=== PATIENT | female | born 1955 | race Caucasian/White ===

== ENCOUNTER 2020-07-25 14:58 | Emergency (ER) | payer MEDICARE, OTHER, SELFPAY ==
[2020-07-25 15:06] VITALS: BP 152/85; PULSE 55; RESP 15; TEMP 36.8; O2SAT 97; BMI 33.9
--- NOTE | 2020-07-25 15:12 | XRR_ITS ---
PROCEDURE INFORMATION: Exam: XR Chest Exam date and time: 07/25/2020 3:13 PM Age: 65 years old Clinical indication: Chest pain TECHNIQUE: Imaging protocol: XR of the chest. Views: 1 view. COMPARISON: CR Chest 1 [place] [id number] 09/14/2014 10:55 PM FINDINGS: Lungs: Unremarkable. No consolidation. Pleural spaces: Unremarkable. No pleural effusion. No pneumothorax. Heart/Mediastinum: Unremarkable. No cardiomegaly. Bones/joints: Unremarkable. XR/XR chest 1V portable [id number] IMPRESSION: No acute findings.
--- NOTE | 2020-07-25 15:12 | ECG_ITS ---
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 Measurements Intervals [place] Rate: 45 P: 42 [place]: 172 QRS: 26 QRSD: 89 T: 20 QT: 436 QTc: 380 Interpretive Statements SINUS BRADYCARDIA WITH SINUS ARRHYTHMIA Compared to ECG 09/15/2014 00:16:01 Sinus rhythm no longer present T-wave abnormality no longer present Electronically Signed On 07-26-2020 10:35:46 CDT by Shannan Griffin M.D. [email or web address] Communications[id number]
--- NOTE | 2020-07-25 15:23 | ED_ITS ---
HPI - Chest Pain General: Chief Complaint: Chest Pain Stated Complaint: CHEST PAIN Time Seen by Provider: 07/25/20 15:02 History of Present Illness: HPI narrative: 65-year-old female presents emergency room with complaint of chest pain that she has had for the last 5 days associated dizziness and shortness of breath. No diaphoresis. Pain and discomfort radiates into the back. No known history of coronary disease she has been told she has atrial fibrillation in the past. MD complaint: chest pain Onset (ago): day(s) Timing of current episode: episodic Onset: during rest Pain location: left chest Pain radiation: none Severity: mild Quality: aching and heaviness Relieving factors: nothing Exacerbating factors: nothing Associated symptoms: Deny abdominal pain, diaphoresis, dyspnea, fever(s), leg edema, nausea, palpitations, sense of impending doom, syncope or vomiting Treatment prior to arrival: none Review of Systems Const: Denies: fever(s) or diaphoresis ENMT: Denies: throat pain, ear or mastoid pain, nasal discharge or nasal congestion Card: Denies: palpitations or syncope Resp: Denies: dyspnea GI: Denies: abdominal pain, nausea or vomiting : Denies: flank pain, difficulty voiding, dysuria, urinary frequency or urinary urgency Skin/Breast: Denies: rash or pruritus Physical Exam Const: COMMON NORMALS: no acute distress GENERAL APPEARANCE: cooperative and comfortable ORIENTATION/CONSCIOUSNESS: Yes awake, Yes oriented to person, Yes oriented to place and Yes oriented to time HENMT: COMMON NORMALS: normocephalic, atraumatic and hearing grossly normal bilaterally HEAD & SCALP: normocephalic and atraumatic Neck/C-Spine: COMMON NORMALS: no JVD Resp: COMMON NORMALS: normal respiratory effort, No retractions, No use of accessory muscles and clear to auscultation bilaterally AUSCULTATION: clear to auscultation bilaterally Cardio: COMMON NORMALS: no JVD, regular rate, regular rhythm and No murmurs present (Cardio) RATE: regular rate RHYTHM: regular rhythm GI: COMMON NORMALS: Soft to palpation and No hepatosplenomegaly present AUSCULTATION: Yes normoactive bowel sounds PALPATION: Yes Soft to palpation, No Tenderness to palpation present (GI), No Guarding due to palpation present (GI) and Yes No hepatosplenomegaly present Extremity: COMMON NORMALS: normal to inspection, capillary refill normal, no clubbing, cyanosis or edema, no calf tenderness and no pedal edema Neuro: SENSORIUM/ORIENTATION: Yes oriented to person, Yes oriented to place and Yes oriented to time Skin: COMMON NORMALS: no rashes or lesions noted GENERAL SKIN EXAM: no rashes or lesions noted Course Vital Signs: Vital signs: Vital Signs Temperature 98.2 F 07/25/20 15:06 Pulse Rate 62 07/25/20 18:49 Respiratory Rate 26 H 07/25/20 18:49 Blood Pressure 164/80 07/25/20 17:22 Pulse Oximetry 94 07/25/20 18:49 MDM - Chest Pain MDM Narrative: Medical decision making narrative: Troponins negative. She has had this for 5 days EKG is unremarkable go and discharge her home set up for an outpatient stress test return if has problems did ask her to take aspirin daily we will start on Protonix. Lab Data: Labs: Lab Results 07/25/20 07/25/20 07/25/20 Range/Units 15:28 15:28 15:28 WBC 10.2 H (4.0-10.0) 10^3/ uL RBC 5.20 (4.1-5.3) 10^6/u L Hgb 15.0 (11.5-15.3) g/dL Hct 47.1 H (37.0-47.0) % MCV 90.6 (81-99) fL MCH 28.8 (28.0-34.0) pg MCHC 31.8 (30.0-36.0) g/dL RDW 14.4 (12.1-15.1) % Plt Count 396 (130-400) 10^3/c mm MPV 9.3 (7.4-10.4) fL Neut % (Auto) 47.2 % Lymph % (Auto) 41.1 % [place] % (Auto) 7.7 % Eos % (Auto) 2.9 % Baso % (Auto) 0.9 % Neut # (Auto) 4.83 (1.8-7.7) 10^3/u L Lymph # (Auto) 4.2 (0.8-4.8) 10^3/u L [place] # (Auto) 0.8 (0.2-0.9) 10^3/u L Eos # (Auto) 0.3 (0.0-0.8) 10^3/u L Baso # (Auto) 0.1 (0.0-0.1) 10^3/u L Nucleated RBC % (a uto) 0 % Nucleated RBCs # 0.0 /100WBC Sodium 141 (136-145) mmol/L Potassium 4.5 (3.5-5.1) mmol/L Chloride 107 (98-107) mmol/L Carbon Dioxide 27 (22-29) mmol/L Anion Gap 11.5 (5-19) BUN 20 (8-23) mg/dL Creatinine 0.7 (0.5-0.9) mg/dL GFR Calculation 83.5 L (90-130) mL/min Glucose 90 (65-115) mg/dL Calculated Osmolal ity 294 (285-295) mOsm/k g Calcium 10.3 (8.5-10.5) mg/dL Total Bilirubin 0.2 (0.15-1.2) mg/dL AST 19 (0-32) U/L ALT 28 (0-33) U/L Alkaline Phosphata se 131 H (35-105) IU/L Troponin T Baselin e 6 (0-10) ng/L Troponin T 120 Min [place] (0-10) ng/L Delta Troponin T (0-10) ABS# Total Protein 6.3 L (6.6-8.7) g/dL Albumin 4.1 (3.5-5.2) g/dL Globulin 2.2 (1.3-4.6) g/dL 07/25/20 Range/Units 17:10 WBC (4.0-10.0) 10^3/ uL RBC (4.1-5.3) 10^6/u L Hgb (11.5-15.3) g/dL Hct (37.0-47.0) % MCV (81-99) fL MCH (28.0-34.0) pg MCHC (30.0-36.0) g/dL RDW (12.1-15.1) % Plt Count (130-400) 10^3/c mm MPV (7.4-10.4) fL Neut % (Auto) % Lymph % (Auto) % [place] % (Auto) % Eos % (Auto) % Baso % (Auto) % Neut # (Auto) (1.8-7.7) 10^3/u L Lymph # (Auto) (0.8-4.8) 10^3/u L [place] # (Auto) (0.2-0.9) 10^3/u L Eos # (Auto) (0.0-0.8) 10^3/u L Baso # (Auto) (0.0-0.1) 10^3/u L Nucleated RBC % (a uto) % Nucleated RBCs # /100WBC Sodium (136-145) mmol/L Potassium (3.5-5.1) mmol/L Chloride (98-107) mmol/L Carbon Dioxide (22-29) mmol/L Anion Gap (5-19) BUN (8-23) mg/dL Creatinine (0.5-0.9) mg/dL GFR Calculation (90-130) mL/min Glucose (65-115) mg/dL Calculated Osmolal ity (285-295) mOsm/k g Calcium (8.5-10.5) mg/dL Total Bilirubin (0.15-1.2) mg/dL AST (0-32) U/L ALT (0-33) U/L Alkaline Phosphata se (35-105) IU/L Troponin T Baselin e (0-10) ng/L Troponin T 120 Min [place] 6.00 (0-10) ng/L Delta Troponin T 0 (0-10) ABS# Total Protein (6.6-8.7) g/dL Albumin (3.5-5.2) g/dL Globulin (1.3-4.6) g/dL Discharge Plan Discharge Patient Disposition: Home Clinical Impression: Atypical chest pain Condition: Stable Prescriptions: New Protonix 40 mg tablet,delayed release (DR/EC) 40 mg PO QAM 28 Days Qty: 28 RF: 0 aspirin 81 mg tablet,delayed release (DR/EC) 81 mg PO DAILY Qty: 30 RF: 0 Discharge Orders: Discharge ED (Routine); Ordered 07/25/20 Ordered By: Lucas Medrano Referrals: Brenda Sears DO [Primary Care Provider] - Discharge Diet: Usual diet Discharge Activity: Resume usual activity Patient Instructions: Opioid Safety Activity Restrictions/Additional Instructions: His management will call to set up a cardiac stress test Coding Level of Care Code ED [employer] for [employer] [place]
[2020-07-25 15:39] LABS: Basophils # 0.1 10^3/uL (0.0-0.1); Basophils % 0.9 %; Eosinophils # 0.3 10^3/uL (0.0-0.8); Eosinophils % 2.9 %; Hematocrit 47.1 % (37.0-47.0); Lymphocytes # 4.2 10^3/uL (0.8-4.8); Lymphocytes % 41.1 %; Mean Corpuscular HGB Conc 31.8 g/dL (30.0-36.0); Mean Corpuscular Hemoglobin 28.8 pg (28.0-34.0); Mean Corpuscular Volume 90.6 fL (81-99); Mean Platelet Volume 9.3 fL (7.4-10.4); Monocytes # 0.8 10^3/uL (0.2-0.9); Monocytes % 7.7 %; Neutrophils # 4.83 10^3/uL (1.8-7.7); Neutrophils % 47.2 %; Nucleated Red Blood Cells % 0 %; Platelet Count 396 10^3/cmm (130-400); Red Cell Distribution Width 14.4 % (12.1-15.1); White Blood Count 10.2 10^3/uL (4.0-10.0)
[2020-07-25] MEDS: aspirin 81 mg Chew Tablet 324 MG PO (15:41)
[2020-07-25 15:57] VITALS: BP 173/87; PULSE 58; RESP 13; O2SAT 95
[2020-07-25 16:03] LABS: Alanine Aminotransferase 28 U/L (0-33); Albumin Level 4.1 g/dL (3.5-5.2); Alkaline Phosphatase 131 IU/L (35-105); Anion Gap 11.5 (5-19); Aspartate Amino Transferase 19 U/L (0-32); Blood Urea Nitrogen 20 mg/dL (8-23); Calcium 10.3 mg/dL (8.5-10.5); Carbon Dioxide 27 mmol/L (22-29); Chloride 107 mmol/L (98-107); Globulin 2.2 g/dL (1.3-4.6); Glomerular Filtration Rate 83.5 mL/min (90-130); Glucose 90 mg/dL (65-115); Osmolality Calculated 294 mOsm/kg (285-295); Potassium 4.5 mmol/L (3.5-5.1); Sodium 141 mmol/L (136-145); Total Bilirubin 0.2 mg/dL (0.15-1.2); Total Protein 6.3 g/dL (6.6-8.7)
[2020-07-25 16:05] LABS: Troponin(5th) Baseline 6 ng/L (0-10)
[2020-07-25 16:23] LABS: Slide Review Slide Review Perform
[2020-07-25 16:43] VITALS: BP 174/86; PULSE 56; O2SAT 96
--- NOTE | 2020-07-25 17:12 | ECG_ITS ---
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 Measurements Intervals [place] Rate: 46 P: 22 SC: 161 QRS: 14 QRSD: 93 T: 8 QT: 450 QTc: 394 Interpretive Statements SINUS BRADYCARDIA WITH SINUS ARRHYTHMIA Compared to ECG 07/25/2020 15:28:36 No significant changes Electronically Signed On 07-26-2020 10:52:02 CDT by Shannan Griffin M.D. [email or web address] residential [email or web address] regional [facility] [email or web address]/[id number]
[2020-07-25 17:13] VITALS: BP 187/91; PULSE 58; RESP 14; O2SAT 97
[2020-07-25 17:22] VITALS: BP 164/80; PULSE 53; RESP 21; O2SAT 95
[2020-07-25 17:43] LABS: Troponin 5 2HR Delta 0 ABS# (0-10)
[2020-07-25 18:49] VITALS: PULSE 62; RESP 26; O2SAT 94
--- NOTE | 2020-07-30 11:15 | DCPLANNER ---
manager animation had message to schedule an outpatient stress test for patient. manager animation faxed signed order to centralized scheduling. manager animation will call for appointment information.
--- NOTE | 2020-07-31 14:50 | DCPLANNER ---
Patient has an outpatient stress test scheduled for , August 20, 2020 at 12:15.
--- NOTE | 2020-10-26 07:48 | DCPLANNER ---
Patient had a stress scheduled for 08.20.20 - patient did not attend the appointment.
== END 2020-07-25 18:50 | disposition home or self-care (01) ==
PROVIDERS: Emergency Provider Family Medicine; PCP Family Medicine
DX: R07.89 Other chest pain (principal)
CPT/HCPCS: 36415; 71045; 80053; 84484; 85025; 93005; 99284

== ENCOUNTER 2021-04-13 06:00 | Outpatient (RCR) | payer MEDICARE, SELFPAY | END 2021-05-10 23:59 | disposition home or self-care (01) | LOC: MPT 06:00 | PROVIDERS: PCP Family Medicine; Referring Provider Family Medicine; Visit Provider Family Medicine | DX: M25.561 Pain in right knee (principal); M25.562 Pain in left knee; G89.29 Other chronic pain | CPT/HCPCS: 97110; 97162 ==

== ENCOUNTER 2021-05-11 06:00 | Outpatient (RCR) | payer MEDICARE, SELFPAY | END 2021-06-07 23:59 | disposition home or self-care (01) | LOC: MPT 06:00 | PROVIDERS: PCP Family Medicine; Referring Provider Family Medicine; Visit Provider Family Medicine | DX: M25.561 Pain in right knee (principal); M25.562 Pain in left knee; G89.29 Other chronic pain; M25.571 Pain in right ankle and joints of right foot; M25.572 Pain in left ankle and joints of left foot | CPT/HCPCS: 97110 ==

== ENCOUNTER 2021-06-08 06:00 | Outpatient (RCR) | payer MEDICARE, SELFPAY | END 2021-06-08 23:59 | disposition home or self-care (01) | LOC: MPT 06:00 | PROVIDERS: PCP Family Medicine; Referring Provider Family Medicine; Visit Provider Family Medicine | DX: M25.561 Pain in right knee (principal); M25.562 Pain in left knee; G89.29 Other chronic pain; M25.571 Pain in right ankle and joints of right foot; M25.572 Pain in left ankle and joints of left foot | CPT/HCPCS: 97110 ==

== ENCOUNTER → 2022-08-15 12:52 | Outpatient (BNVA) | payer MEDICARE, SELFPAY | PROVIDERS: PCP Family Medicine; Referring Provider Nurse Practitioner Family; Visit Provider Dermatology | DX: S80.922A Unspecified superficial injury of left lower leg, initial encounter (principal); X58.XXXA Exposure to other specified factors, initial encounter; L92.0 Granuloma annulare; L81.4 Other melanin hyperpigmentation; L57.8 Other skin changes due to chronic exposure to nonionizing radiation; L82.1 Other seborrheic keratosis; L57.0 Actinic keratosis; D48.5 Neoplasm of uncertain behavior of skin | CPT/HCPCS: 17000; 17003; 99204 ==

== ENCOUNTER → 2022-11-24 14:27 | Outpatient (BNVA) | payer MEDICARE, SELFPAY | PROVIDERS: PCP Family Medicine; Visit Provider Dermatology | DX: S80.922A Unspecified superficial injury of left lower leg, initial encounter (principal); L92.0 Granuloma annulare; L82.1 Other seborrheic keratosis; L81.4 Other melanin hyperpigmentation; X58.XXXA Exposure to other specified factors, initial encounter; Y99.9 Unspecified external cause status | CPT/HCPCS: 99214 ==

== ENCOUNTER → 2023-11-23 14:02 | Outpatient (BNVA) | payer MEDICARE, SELFPAY | PROVIDERS: PCP Family Medicine; Visit Provider Nurse Practitioner Family | DX: L57.0 Actinic keratosis (principal); L30.4 Erythema intertrigo; L92.0 Granuloma annulare; L81.7 Pigmented purpuric dermatosis; L81.4 Other melanin hyperpigmentation; B35.1 Tinea unguium | CPT/HCPCS: 17000; 99214 ==

== ENCOUNTER → 2024-11-25 08:37 | Outpatient (BNVA) | payer MEDICARE, SELFPAY | PROVIDERS: PCP Family Medicine; Visit Provider Nurse Practitioner Family | DX: L92.0 Granuloma annulare (principal); L81.7 Pigmented purpuric dermatosis; L81.4 Other melanin hyperpigmentation; D48.5 Neoplasm of uncertain behavior of skin; L57.0 Actinic keratosis | CPT/HCPCS: 11102; 17000; 99214 ==

== ENCOUNTER → 2024-12-25 09:08 | Outpatient (BNVA) | payer MEDICARE, SELFPAY | PROVIDERS: PCP Family Medicine; Visit Provider Dermatology | DX: L82.1 Other seborrheic keratosis (principal); L81.7 Pigmented purpuric dermatosis; D03.62 Melanoma in situ of left upper limb, including shoulder; D48.5 Neoplasm of uncertain behavior of skin | CPT/HCPCS: 11102; 11603; 12032; 99213 ==